=== PATIENT | female | born 1990 | race Caucasian/White ===

== ENCOUNTER 2017-06-13 11:51 | Emergency (ER) | payer BC, MEDICAID ==
[2017-06-13] MEDS ORDERED: TORAdol 30 mg Injection IV ONE (12:26)
[2017-06-13] MEDS ORDERED: Sodium Chloride 0.9% 1000 ML 1,000 ML IV STA (12:26)
[2017-06-13] MEDS ORDERED: Phenergan 25 MG INJ IM ONE (12:26)
[2017-06-13 12:29] VITALS: O2SAT 99
--- NOTE | 2017-06-13 12:30 | ERPHSYRPT ---
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 She has vomiting and diarrhea since [place]. Severe abdominal cramping. Pain in her spine and muscles. LMP 3 weeks ago and on OCP. She had 2 prior C-sections. She feels dry and miserable. Timing/Duration: today ([place]) Abdominal Pain Onset Location: generalized abdomen Severity of Pain-Max: severe Severity of Pain-Current: severe Allergies/Adverse Reactions: Penicillins Allergy (Mild, Verified 06/13/17 12:29) Home Medications: Norgestimate-Ethinyl Estradiol [Tri-Estarylla Tablet] 1 tab PO DAILY 06/13/17 [ History] Hx Tetanus, Diphtheria Vaccination/Date Given: Yes Hx Influenza Vaccination/Date Given: No Hx Pneumococcal Vaccination/Date Given: No - Review of Systems Constitutional: Fatigue, Malaise, Weakness, No Fever, No Chills Eyes: No Symptoms Ears, Nose, & Throat: No Symptoms Respiratory: No Cough, No Dyspnea Cardiac: No Chest Pain Abdominal/Gastrointestinal: Abdominal Pain, Nausea, Vomiting, Diarrhea Genitourinary Symptoms: No Dysuria Musculoskeletal: Back Pain, Myalgias Skin: No Rash Neurological: No Symptoms All Other Systems: Reviewed and Negative - Past Medical History Pertinent Past Medical History: No - Past Surgical History Past Surgical History: Yes Female Surgical History: Section Other Surgical History: TONSILLECTOMY - DENTAL EXTRACTIONS - Social History Smoking Status: Never smoker Exposure to second hand smoke: No Drug Use: none Patient Lives Alone: No - Nursing Vital Signs Nursing Vital Signs: Initial Vital Signs Temperature 98.6 F 06/13/17 12:21 Pulse Rate 125 H 06/13/17 12:21 Respiratory Rate 20 06/13/17 12:21 Blood Pressure 144/91 06/13/17 12:21 O2 Sat by Pulse Oximetry 99 06/13/17 12:21 Pain Scale Pain Intensity 0 - Physical Exam General Appearance: alert Eye Exam: PERRL/EOMI Ears, Nose, Throat Exam: dry mucous membranes Neck Exam: normal inspection, non-tender, supple Respiratory Exam: normal breath sounds, lungs clear Cardiovascular Exam: regular rate/rhythm, tachycardia, No murmur Gastrointestinal/Abdomen Exam: soft, No tenderness, No distention Extremity Exam: normal inspection, normal range of motion, No pedal edema Neurologic Exam: alert, oriented x 3, cooperative, roll hauler II-XII nml as tested, sensation nml, No motor deficits Skin Exam: warm, dry, other (sallow appearing), No rash - Course Nursing assessment & vital signs reviewed: Yes Ordered Tests: Active Orders 24 hr Category Date Time Status Clean Catch Urine Specimen STAT Care 06/13/17 12:26 Active IV Insertion STAT Care 06/13/17 12:26 Active CBC W DIFF Stat Lab 06/13/17 12:30 Completed CMP Stat Lab 06/13/17 12:30 Completed HCG QUALITATIVE,SERUM Stat Lab 06/13/17 12:30 Completed LIPASE Stat Lab 06/13/17 12:30 Completed UA W/ MICROSCOPIC Stat Lab 06/13/17 13:18 Completed Medication Summary Discontinued Medications Generic Name Dose Route Start Last Admin Trade Name Freq PRN Reason Stop Dose Admin Sodium Chloride 1,000 mls @ 999 mls/hr 06/13/17 12:26 06/13/17 12:43 Sodium Chloride 0.9% 1000 Ml IV 06/13/17 13:26 999 mls/hr .Q1H1M STA Administration Sodium Chloride Confirm 06/13/17 12:40 Sodium Chloride 0.9% 1000 Ml Administered 06/13/17 12:41 Dose 1,000 mls @ ud .ROUTE .STK-MED ONE Ketorolac Tromethamine 15 mg 06/13/17 12:26 06/13/17 12:45 Toradol 30 Mg Injection IV 06/13/17 12:27 15 mg STAT ONE Administration Ketorolac Tromethamine Confirm 06/13/17 12:40 Toradol 30 Mg Injection Administered 06/13/17 12:41 Dose 30 mg .ROUTE .STK-MED ONE Promethazine HCl 25 mg 06/13/17 12:26 06/13/17 12:47 Phenergan 25 Mg Inj IM 06/13/17 12:27 25 mg STAT ONE Administration Promethazine HCl Confirm 06/13/17 12:40 Phenergan 25 Mg Inj Administered 06/13/17 12:41 Dose 25 mg .ROUTE .STK-MED ONE Lab/Rad Data: Laboratory Result Diagrams 06/13/17 12:30 06/13/17 12:30 Laboratory Results 06/13/17 06/13/17 06/13/17 Range/Units 13:18 12:30 12:30 WBC (4.0-10.5) K/mm3 RBC (4.1-5.4) M/mm3 Hgb (12.0-16.0) gm/dl Hct (35-47) % MCV (78-100) fl MCH (26-32) pg MCHC (32-36) g/dl RDW (11.5-14.0) % Plt Count (150-450) K/mm3 MPV (6-9.5) fl Gran % (36.0-66.0) % Lymphocytes % (24.0-44.0) % Monocytes % (0.0-12.0) % Eosinophils % (0.00-5.0) % Basophils % (0.0-0.4) % Basophils # (0-0.4) Sodium 145 (136-145) mEq/L Potassium 3.3 L (3.5-5.1) mEq/L Chloride 110 H (98-107) mEq/L Carbon Dioxide 23.8 (21-32) mEq/L Anion Gap 14.1 (5-15) MEQ/L BUN 16 (9-20) mg/dL Creatinine 0.72 (0.55-1.30) mg/dl Estimated GFR > 60 ML/MIN Glucose 102 (70-110) MG/DL Calcium 8.5 (8.5-10.1) mg/dL Total Bilirubin 0.90 (0.2-1.0) mg/dL AST 19 (15-37) U/L ALT 16 (12-78) U/L Alkaline Phosphatase 40 L (46-116) U/L Serum Total Protein 6.7 (6.4-8.2) gm/dL Albumin 3.7 (3.4-5.0) g/dL Lipase 211 (73-393) U/L Serum , Qual NEGATIVE (Negative) Ur Collection Type CLEAN CATCH Urine Color DARK YELLOW (YELLOW) Urine Appearance HAZY (CLEAR) Urine pH 6.0 (5-6) Ur Specific [place] 1.015 (1.005-1.025) Urine Protein NEGATIVE (Negative) Urine Ketones MODERATE-40 (NEGATIVE) Urine Blood TRACE NON-HEM (0-5) Fran/ul Urine Nitrite NEGATIVE (NEGATIVE) Urine Bilirubin NEGATIVE (NEGATIVE) Urine Urobilinogen NORMAL (0-1) mg/dL Ur Leukocyte Esterase NEGATIVE (NEGATIVE) Urine Microscopic RBC 0-2 (0-2) /HPF Urine Microscopic WBC 0-2 (0-5) /HPF Ur Epithelial Cells RARE (FEW) /HPF Urine Bacteria RARE (NEGATIVE) /HPF Urine Mucus MODERATE (NEGATIVE) /HPF Urine Culture Reflexed NO (NO) Urine Glucose NEGATIVE (NEGATIVE) mg/dL Slides for Path Review Specimen Received 06/13/17 1415 06/13/17 Range/Units 12:30 WBC 8.7 (4.0-10.5) K/mm3 RBC 4.50 (4.1-5.4) M/mm3 Hgb 13.7 (12.0-16.0) gm/dl Hct 40.9 (35-47) % MCV 90.9 (78-100) fl MCH 30.4 (26-32) pg MCHC 33.5 (32-36) g/dl RDW 12.7 (11.5-14.0) % Plt Count 149 L (150-450) K/mm3 MPV 10.5 H (6-9.5) fl Gran % 92.9 H (36.0-66.0) % Lymphocytes % 3.4 L (24.0-44.0) % Monocytes % 3.6 (0.0-12.0) % Eosinophils % 0.0 (0.00-5.0) % Basophils % 0.1 (0.0-0.4) % Basophils # 0.01 (0-0.4) Sodium (136-145) mEq/L Potassium (3.5-5.1) mEq/L Chloride (98-107) mEq/L Carbon Dioxide (21-32) mEq/L Anion Gap (5-15) MEQ/L BUN (9-20) mg/dL Creatinine (0.55-1.30) mg/dl Estimated GFR ML/MIN Glucose (70-110) MG/DL Calcium (8.5-10.1) mg/dL Total Bilirubin (0.2-1.0) mg/dL AST (15-37) U/L ALT (12-78) U/L Alkaline Phosphatase (46-116) U/L Serum Total Protein (6.4-8.2) gm/dL Albumin (3.4-5.0) g/dL Lipase (73-393) U/L Serum , Qual (Negative) Ur Collection Type Urine Color (YELLOW) Urine Appearance (CLEAR) Urine pH (5-6) Ur Specific [place] (1.005-1.025) Urine Protein (Negative) Urine Ketones (NEGATIVE) Urine Blood (0-5) Fran/ul Urine Nitrite (NEGATIVE) Urine Bilirubin (NEGATIVE) Urine Urobilinogen (0-1) mg/dL Ur Leukocyte Esterase (NEGATIVE) Urine Microscopic RBC (0-2) /HPF Urine Microscopic WBC (0-5) /HPF Ur Epithelial Cells (FEW) /HPF Urine Bacteria (NEGATIVE) /HPF Urine Mucus (NEGATIVE) /HPF Urine Culture Reflexed (NO) Urine Glucose (NEGATIVE) mg/dL Slides for Path Review YES Specimen Received - Progress Progress Note: 06/13/17 14:46 She feels much better after phenergan and IVF. She ate popscicle and ambulated. Will release with instr. Abd soft and NT on recheck examination. Counseled pt/family regarding: lab results, diagnosis, need for follow-up - Departure Time of Disposition: 14:47 Departure Disposition: Home Clinical Impression: Vomiting and diarrhea, Dehydration Condition: Stable Critical Care Time: No Referrals: SHAMA VAN MD [Primary Care Provider] - Instructions: Diarrhea and Traveler's Diarrhea -- Adult, Vomiting -- Adult Additional Instructions: VOMITING AND DIARRHEA 1. Take only small amounts of clear, cool liquids at frequent intervals as tolerated for the next 24-48 hours. Avoid milk products and orange juice. Clear liquids are those liquids which you can see through. 2. Pedialyte and popsicles are recommended clear liquids. 3. If the condition worsens you should contact your family physician or return to the emergency department for re-evaluation. Rx phenergan. No driving today. Sip fluids. Return for problems or concerns. Off work tomorrow. Prescriptions: Promethazine HCl 25 mg [Phenergan 25 mg] 25 mg PO Q6-8HPRN PRN #8 tablet PRN Reason: Nausea/Vomiting
[2017-06-13] MEDS ORDERED: Phenergan 25 MG INJ ONE (12:40)
[2017-06-13] MEDS ORDERED: TORAdol 30 mg Injection ONE (12:40)
[2017-06-13] MEDS ORDERED: Sodium Chloride 0.9% 1000 ML 1,000 ML ONE (12:40)
[2017-06-13 13:26] LABS: BASOPHIL % 0.1 % (0.0-0.4); Basophil (Absolute #) 0.01 (0-0.4); Eosinophil (Absolute #) 0 (0-0.5); Granulocyte Absolute (ANC) 8.09 (1.4-6.9); Granulocytes % 92.9 % (36.0-66.0); Hematocrit 40.9 % (35-47); Hemoglobin 13.7 gm/dl (12.0-16.0); Lymphocytes % 3.4 % (24.0-44.0); Mean Cell Volume 90.9 fl (78-100); Mean Corpuscular Hemoglobin 30.4 pg (26-32); Mean Corpuscular Hgb Concent. 33.5 g/dl (32-36); Mean Platelet Volume 10.5 fl (6-9.5); Monocyte (Absolute #) 0.31 (0.0-1.3); Monocytes % 3.6 % (0.0-12.0); Platelet Count 149 K/mm3 (150-450); Red Cell Distribution Width 12.7 % (11.5-14.0); White Blood Count 8.7 K/mm3 (4.0-10.5)
[2017-06-13 13:52] LABS: ALBUMIN 3.7 g/dL (3.4-5.0); ALKALINE PHOSPHATASE 40 U/L (46-116); ANION GAP 14.1 MEQ/L (5-15); BLOOD UREA NITROGEN 16 mg/dL (9-20); CHLORIDE 110 mEq/L (98-107); Calcium 8.5 mg/dL (8.5-10.1); Carbon Dioxide 23.8 mEq/L (21-32); Creatinine 1 0.72 mg/dl (0.55-1.30); EST GLOMERULAR FILTRATION RATE > 60 ML/MIN; Glucose 102 MG/DL (70-110); LIPASE 211 U/L (73-393); Potassium 3.3 mEq/L (3.5-5.1); SGOT/AST 19 U/L (15-37); SGPT/ALT 16 U/L (12-78); SODIUM 145 mEq/L (136-145); Total Protein 6.7 gm/dL (6.4-8.2)
[2017-06-13 14:16] LABS: Slide Review 1 YES
[2017-06-13 14:34] LABS: Appearance HAZY (CLEAR); Bilirubin NEGATIVE (NEGATIVE); Blood TRACE NON-HEM Ery/ul (0-5); Glucose NEGATIVE (NEGATIVE); Ketones MODERATE-40 (NEGATIVE); Leukocyte Esterase NEGATIVE (NEGATIVE); Nitrite NEGATIVE (NEGATIVE); Protein,Urine Dip NEGATIVE (Negative); Specific Gravity 1.015 (1.005-1.025); Urobilinogen NORMAL mg/dL (0-1)
[2017-06-13 14:39] LABS: Bacteria RARE /HPF (NEGATIVE); Epithelial Cells RARE /HPF (FEW); Mucus MODERATE /HPF (NEGATIVE); WBC 0-2 /HPF (0-5)
[2017-06-13 15:14] VITALS: BP 136/72; PULSE 88
== END 2017-06-13 15:13 | disposition home or self-care (01) ==
LOC: ED 11:51
DX: R11.10 Vomiting, unspecified (principal); R19.7 Diarrhea, unspecified; E86.0 Dehydration
CPT/HCPCS: 36000; 36415; 80053; 81000; 83690; 84703; 85025; 96360; 96374; 99284; J1885; J2550